=== PATIENT | male | born 1985 | race Two or more races ===

== ENCOUNTER 2016-08-08 10:22 | Emergency (ER) | payer MEDICAID, OTHER ==
[~2016-08-08] VITALS: Ht 188 cm; Wt 93.0 kg
[2016-08-08 12:52] VITALS: BP 141/87
[2016-08-08] MEDS ORDERED: KETOROLAC TROMETH 60MG/2ML VIAL IM ONE (13:30)
[2016-08-08] MEDS ORDERED: diphenhdrAMINE HCL 50 MG/1 ML VL IM ONE (13:30)
== END 2016-08-08 13:57 | disposition home or self-care (01) ==
LOC: ER 10:32
DX: T78.40XA Allergy, unspecified, initial encounter (principal); F17.210 Nicotine dependence, cigarettes, uncomplicated; W57.XXXA Bitten or stung by nonvenomous insect and other nonvenomous arthropods, initial encounter; Y93.89 Activity, other specified; Y99.8 Other external cause status; Y92.89 Other specified places as the place of occurrence of the external cause
CPT/HCPCS: 96372; 99283; J1200; J1885

== ENCOUNTER 2016-08-10 23:22 | Emergency (ER) | payer OTHER ==
[~2016-08-10] VITALS: Ht 188 cm; Wt 95.3 kg
[2016-08-10 23:30] VITALS: BP 122/96
== END 2016-08-11 01:45 | disposition home or self-care (01) ==
LOC: ER 23:23
DX: R21 Rash and other nonspecific skin eruption (principal); Z76.0 Encounter for issue of repeat prescription; F17.210 Nicotine dependence, cigarettes, uncomplicated; W57.XXXA Bitten or stung by nonvenomous insect and other nonvenomous arthropods, initial encounter